=== PATIENT | male | born 2000 | race Caucasian/White ===

== ENCOUNTER 2019-01-26 17:02 | Emergency (ER) | payer OTHER ==
[~2019-01-26] VITALS: Ht 180.3 cm; Wt 72.6 kg
[2019-01-26] MEDS ORDERED: ZANTAC300 MG PO (18:48)
[2019-01-26] MEDS ORDERED: CARAFATE1 GM PO (18:48)
== END 2019-01-26 22:49 | disposition designated cancer center or children's hospital (05) ==
LOC: ER 17:02
DX: S06.4X0A Epidural hemorrhage without loss of consciousness, initial encounter (principal); W10.9XXA Fall (on) (from) unspecified stairs and steps, initial encounter; Y93.89 Activity, other specified; Y92.89 Other specified places as the place of occurrence of the external cause; Y99.8 Other external cause status